=== PATIENT | female | born 1985 | race Caucasian/White ===

== ENCOUNTER 2018-05-14 19:25 | Emergency (ER) | payer OTHER ==
[~2018-05-14] VITALS: Ht 165.1 cm; Wt 65.3 kg
[~2018-05-14 19:25] MED LIST: ACYCLOVIR 400400 MG PO; LIDOVEX60 GM TOP; SPRINTEC1 EACH; TRIAMCINOLONE A80 G2 TOP; TYLENOL PM EX-1 EACH PO
[2018-05-14 20:02] VITALS: BP 167/68
== END 2018-05-14 20:04 | disposition home or self-care (01) ==
LOC: M.ERS 19:25
DX: F41.9 Anxiety disorder, unspecified (principal); F17.210 Nicotine dependence, cigarettes, uncomplicated; Z88.1 Allergy status to other antibiotic agents; Z88.2 Allergy status to sulfonamides; Z88.5 Allergy status to narcotic agent; Z88.6 Allergy status to analgesic agent; Z91.040 Latex allergy status

== ENCOUNTER 2018-11-13 19:33 | Emergency (ER) | payer OTHER ==
[~2018-11-13] VITALS: Ht 165.1 cm; Wt 63.5 kg
[2018-11-13] MEDS ORDERED: ADDERALL 10 MG10 MG PO (19:41)
[2018-11-13] MEDS ORDERED: IMITREX100 MG PO (19:41)
[2018-11-13] MEDS ORDERED: WELLBUTRIN XL150 MG PO (19:42)
[2018-11-13] MEDS ORDERED: PHENERGAN 25 MG25 M1 PO (21:55)
[2018-11-13 22:01] VITALS: BP 122/80
== END 2018-11-13 22:02 | disposition home or self-care (01) ==
LOC: M.ERS 19:33
DX: G43.909 Migraine, unspecified, not intractable, without status migrainosus (principal); F41.9 Anxiety disorder, unspecified; F17.210 Nicotine dependence, cigarettes, uncomplicated; Z88.2 Allergy status to sulfonamides; Z88.1 Allergy status to other antibiotic agents; Z88.6 Allergy status to analgesic agent; Z88.5 Allergy status to narcotic agent; Z88.8 Allergy status to other drugs, medicaments and biological substances; Z91.040 Latex allergy status; Z90.49 Acquired absence of other specified parts of digestive tract; Z90.721 Acquired absence of ovaries, unilateral